=== PATIENT | male | born 1985 | race Caucasian/White ===

== ENCOUNTER 2017-09-10 12:05 | Day surgery (SDC) | payer BC, OTHER ==
[~2017-09-10 12:05] MED LIST: RINGER'S SOLUTION,LACTATED 1,000 ML IV PRN; ceFAZolin SODIUM 2 GM in DEXTROSE 5 % IN WATER 50 ML IV PRN
[2017-09-10] MEDS ORDERED: RINGER'S SOLUTION,LACTATED 1,000 ML IV ONE (13:25)
[2017-09-10] MEDS ORDERED: ceFAZolin SODIUM 1 GM VIAL IV ONE (13:45)
[2017-09-10] MEDS ORDERED: LIDOCAINE HCL 50 ML VIAL IJ ONE ×2 (14:00)
[2017-09-10] MEDS ORDERED: BUPIVACAINE HCL/EPINEPHRINE 50 ML VIAL IJ ONE ×2 (14:00)
--- NOTE | 2017-09-10 15:00 | OR ---
Operative Report - Dictated Report Narrative: Date: 09/10/2017 Preoperative diagnosis: Left inguinal hernia Postoperative diagnosis: Same, indirect, lipoma of the spermatic cord Procedure: Left inguinal hernia repair with medium PerFix plug and patch, excision of lipoma of the spermatic cord Staff surgeon: Vik Herrmann MD Anesthesia: Local MAC EBL: Minimal Specimens: Lipoma of the cord discarded Description of procedure: The patient was placed in the supine position and the left groin and genitalia were prepped and draped in a sterile fashion. A field block was performed in the inguinal region. An incision was carried out at the pubic tubercle and extended laterally for 3 fingerbreadths. Dissection was taken down through the subcutaneous tissue to the external oblique neurosis. Additional anesthesia was injected into the inguinal canal. The external oblique aponeurosis was then divided in the direction of its fibers through the external ring. The spermatic cord was isolated at the pubic tubercle with Lamar drain. The ilioinguinal nerve was identified and dissected and spared in our dissection and retracted cephalad. The posterior inguinal canal was completely intact. The patient has a high riding left testicle and foreshortened spermatic cord. No significant hydrocele was appreciated. The external spermatic fascia was then split bluntly up near the internal ring. A large lipoma cord was dissected free from surrounding structures and amputated with electrocautery at its neck at the internal ring. The stump of this piece of fat was seen to return to the abdominal cavity. A small indirect hernia sac was then identified and dissected free from surrounding cord structures. The sac was imbricated back into the abdominal cavity and a properitoneal pocket was developed with finger dissection and sponge packing. A medium PerFix plug was then deployed into this properitoneal pocket using the [place] modification. The plug was secured to the internal oblique musculature with a single stitch of Prolene. The pre-keyholed piece of mesh was then fashioned to conform to the posterior inguinal canal with a 2 cm overlap over the pubic tubercle. This was placed in an onlay fashion. The spermatic cord was returned to an anatomic position with the aid of traction on the testicle. There was no torsion. The external obliquus was reconstituted with running whipstitch of 3-0 Vicryl. The incision was closed with a subcuticular stitch of 4-0 Vicryl and then sealed with Dermabond. The patient tolerated the procedure well without any apparent complications and was discharged from the operating room in stable condition.
[2017-09-10 16:01] VITALS: BP 114/69
== END 2017-09-10 12:06 | disposition home or self-care (01) ==
LOC: AMB 12:05
PROVIDERS: ATTEND Specialist
PROC: 0YU60JZ Supplement Left Inguinal Region with Synthetic Substitute, Open Approach (ICD-10-PCS; principal; 2017-09-10 13:15)
DX: K40.90 Unilateral inguinal hernia, without obstruction or gangrene, not specified as recurrent (principal); D17.6 Benign lipomatous neoplasm of spermatic cord; N43.2 Other hydrocele; F17.200 Nicotine dependence, unspecified, uncomplicated; Z68.31 Body mass index [BMI] 31.0-31.9, adult